=== PATIENT | female | born 1965 | race Hispanic/Latino ===

== ENCOUNTER → 2016-11-24 | Day surgery (SDC) | payer OTHER ==
[~2016-11-24] MED LIST: FAMOTIDINE20 M1 PO; FAMOTIDINE20 MG/2 ML PO; KEFLEX500 M1 PO; METHYLPREDNISOLO4 M2 PO; OMEPRAZOLE20 M2 PO; ONDANSETRON4 MG/2 M3 PO; PEPCID20 M1 PO; RABEPRAZOLE SOD20 M1 PO; SENNA PLUS TAB1 EACH PO; ZOFRAN8 M1 PO
--- NOTE | 2016-11-24 15:52 | Operative Report ---
Operative/Inv Procedure Report Surgery Date: 11/24/16 Name of Procedure: cystscopy: right ureter dilatation: right stent insertion. ureteroscopy with laser Pre-Operative Diagnosis: right staghorn calculus Post-Operative Diagnosis: large purulent drainage from right kidney Estimated Blood Loss: scant Surgeon/Home Therapy Teacher: NAY TORRE MD Anesthesia: laryngeal mask airway Complications: none Condition: improved Operative/Procedure Note Note: The patient was taken to the operating room and placed on the OR table in supine position. Timeout was performed in order to confirm correct patient, procedure, laterality, and other pertinent information with pt. awake. After adequate anesthesia, and antibiotics, the patient was then placed in yellow-fin lithotomy stirrups, draped and prepped in the usual surgical fashion. A 22 Frisian cystoscope sheath with 30 angle lens was inserted into the bladder without difficulty. Upon entering the bladder, the bladder was noted to be free of tumor , free of stone. Both orifices were in their orthotopic position. The right ureter orifice was intubated with an 8fr cone-tip catheter and a retrograde pyelogram with fluoroscopy was performed. A large staghorn filling defect was seen. The cone-tipped catheter was removed, followed by insertion of a 0.035 Glidewire, which was advanced into the right renal pelvis without difficulty, and placement was confirmed on fluoroscopy. Leaving the Glidewire in place, and the flexible ureteroscope was inserted over the gluidewire into the bladder. The flexible ureteroscope was advanced up the right ureter with fluoroscopy visualization, following the gluidewire. Upon reaching the renal pelvis, a large amount of purulent material obstructed my view, despite drainage and irrigation. Laser lithotrypsy was deamed too risky at this time and this part of the procedure was abandoned. Placement of a stent to further drain the kidney was necessary. The 0.035 gluidewire was reinserted into the renal pelvis via the ureteroscope. The entire length of the ureter was visualized carefully on the way out levealing the gluide wire in place. The gluidewire was then backloaded into the cytoscope, which was then reintroduced into the bladder. A [id number] [place] stent was railroaded over the gluiedwire, and advanced under direct vision, into the renal pelvis. The gluidewire was removed, and correct placement of the stent was confirmed on fluoroscopy. The bladder was then drained, as the cystoscope was removed at the end of the case. The patient tolerated the procedure well, and was then taken to the recovery room in satisfactory condition. Findings: large amount purulent material at kidney. large obstructing stone filling renal pelvis. Discharge Disposition: PACU CC: YELITZA VALENTE,NAY
--- NOTE | 2016-11-25 15:11 | RADIOLOGY REPORT ---
EXAMINATION: XR ABDOMEN CLINICAL INDICATION: Right ureteroscopy COMPARISON: CT abdomen pelvis dated 06/07/2016 TECHNIQUE: AP spot images of the abdomen were obtained as part of the procedure performed by Dr. Ross. 92.9 seconds fluoroscopy time provided. FINDINGS/IMPRESSION: The initial images demonstrate a staghorn calculus in the right kidney. Following cannulation of the ureter, a retrograde study was performed by Dr. Ross with contrast opacification of the renal collecting system. A ureteral stent was subsequently advanced into the right renal pelvis.
== END ==
LOC: STS 11-17 07:00
DX: N20.0 Calculus of kidney (principal); N28.89 Other specified disorders of kidney and ureter; Z87.442 Personal history of urinary calculi; Z87.19 Personal history of other diseases of the digestive system
CPT/HCPCS: 74000; 81025; C2617; J0131; J0696; J1100; J2250; J2405

== ENCOUNTER → 2017-03-07 | Day surgery (SDC) | payer OTHER ==
[~2017-03-07] VITALS: Ht 157.5 cm; Wt 59.0 kg
--- NOTE | 2017-03-07 10:43 | Operative Report ---
Operative/Inv Procedure Report Surgery Date: 03/07/17 Name of Procedure: Right ureter ESWL. Cystoscopy right stent removal. Fluoroscopy. Pre-Operative Diagnosis: Right staghorn calculus. Right stent. Right ureter stone. Post-Operative Diagnosis: Same Estimated Blood Loss: scant Surgeon/Edge Beader: NAY TORRE MD Anesthesia: moderate sedation Specimens: rigth stent Complications: none Operative/Procedure Note Note: The patient was taken to the operating room and placed on the ESWL table in supine position. Time out was performed, with the patient awake, to confirm identity, procedure, laterality, and other pertinent rosalina-operative information. After adequate anesthesia, the patient was positioned so that the right flank was placed over the ESWL table cut-out, and overlying the dome of the shockwave generator. C-arm fluroscopy, as well as renal US was used to locate the stone, and evaluate the right kidney. The right staghorn was clearly visible on fluoroscopy. The 6 mm right mid ureter stone was also visible on fluroloscopy, which is to target for today's ESWL. Renal US confirmed mild hydronephrosis with the staghorn stone seen in the right kidney. Using the C-Arm fluoroscopy in an A-P, and Oblique view, the position of the right ureter stone was optimized at the center of the crosshairs. At this point, E.S.W.L. was initiated at low power levels x 200 shocks. After noting the patient's tolerance to the shockwaves, the shockwave power level was quickly maximized. At the end of the procedure, the composition of the stone had changed significantly indicating the pulverization of the ureter stone. A total of 3000 shockwaves were delivered to the stone in order to achieve adequate lithotrypsy. Once the ESWL concluded, the pt. was repositioned in frog-legged position, draped and prepped in the usual surgical fashion. A 22 Uzbek cystoscope sheath with a 30 angle lens was then inserted into the bladder. The bladder was thoroughly and systematically surveyed revealing no tumor no stone. Both ureteral orifices were in their orthotopic position. The right orifice was intubated by a stent. The stent was then grasped with a grasping forceps, and this entire stent, along with the cystoscope was removed intact. The cystoscope was then removed after draining the bladder. The patient tolerated the procedures well, was awakened, and taken to recovery in satisfactory condition via stretcher. The pt will be dischared to home with pain meds, diet orders, and intructions to catch fragments with straining the urine. The patient is to have follow-up renal ultrasound and KUB within 1-2 weeks and f/u in the office after discharge. Discharge Disposition: PACU CC: NAY TORRE MD
== END ==
LOC: STS 01:19
DX: N13.2 Hydronephrosis with renal and ureteral calculous obstruction (principal); Z87.442 Personal history of urinary calculi
CPT/HCPCS: J2250